=== PATIENT | male | born 1950 | race Caucasian/White ===

== ENCOUNTER → 2017-08-06 | Outpatient (CLI) | payer OTHER ==
[~2017-08-06] MED LIST: ASPI81TA45 PO; BUME1TAB PO; CARV3.12 PO; CLOP75TA PO; FURO40TA PO; LISI10TA3 PO; MAGN250T11 PO; MUCI60TA5 PO; MULT-65 PO; OMEP20TA39 PO; PERC5TAB12 PO; POTA10IN2 PO; RANI150T PO; SACU1TAB PO; TAB-TAB PO; TEMA30CA PO; VITA2000 PO
[2017-08-06 13:18] LABS: AUTOMATED NEUTROPHIL # 4.8 TH/MM3 (1.8-7.7); BASOPHIL # 0.1 TH/MM3 (0-0.2); BASOPHIL % 0.8 % (0.0-2.0); EOSINOPHIL # 0.2 TH/MM3 (0-0.4); EOSINOPHIL % 2.2 % (0.0-4.0); HEMATOCRIT 45.4 % (39.0-51.0); HEMOGLOBIN 15.2 GM/DL (13.0-17.0); LYMPH % 15.1 % (9.0-44.0); LYMPHOCYTE # 1.1 TH/MM3 (1.0-4.8); MEAN CELL VOLUME 91.8 FL (80.0-100.0); MEAN CORPUSCULAR HEMOGLOBIN 30.7 PG (27.0-34.0); MEAN CORPUSCULAR HGB CONC 33.4 % (32.0-36.0); MEAN PLATELET VOLUME 8.4 FL (7.0-11.0); MONO % 13.1 % (0.0-8.0); MONOCYTE # 0.9 TH/MM3 (0-0.9); NEUT % 68.8 % (16.0-70.0); PLATELET COUNT 257 TH/MM3 (150-450); RED BLOOD COUNT 4.95 MIL/MM3 (4.50-5.90); RED CELL DISTRIBUTION WIDTH 13.2 % (11.6-17.2)
[2017-08-06 13:19] LABS: BILIRUBIN, URINE NEG (NEG); BLOOD, URINE NEG (NEG); GLUCOSE,URINE NEG (NEG); KETONE, URINE NEG (NEG); MUCUS URINE FEW /lpf (OCC); NITRITE,URINE NEG (NEG); URINE COLOR YELLOW (YELLW/STRAW); URINE LEUKOCYTE ESTERASE NEG (NEG)
[2017-08-06 13:27] LABS: PROTHROMBIN TIME - PATIENT 10.7 SEC (9.8-11.6)
--- NOTE | 2017-08-06 13:29 | RADRPT ---
EXAM DATE/TIME: 08/06/2017 13:10 [place] COMPARISON: No previous studies available for comparison. INDICATIONS : Evaluate for pneumonia, pneumothorax, or comminicable disease. Pre op for carotid endarterectomy on 2016. MEDICAL HISTORY : Chronic obstructive pulmonary disease. Congestive heart failure. Afib. SURGICAL HISTORY : Pacemaker. Defibrillator. ENCOUNTER: Initial ACUITY: 1 day PAIN SCORE: 0/10 LOCATION: Bilateral chest FINDINGS: PA and lateral views of the chest demonstrate the lungs to be symmetrically aerated without evidence of mass, infiltrate or effusion. 3-lead pacer is evident. The cardiomediastinal contours are unrema rkable. Osseous structures are intact. CONCLUSION: Negative for an acute process. Sean Lewis MD FACR on August 06, 2017 at 13:27 Board Certified Radiologist. This report was verified electronically.
[2017-08-06 13:41] LABS: BICARBONATE 26.1 MEQ/L (21.0-32.0); CREATININE 1.2 MG/DL (0.60-1.30)
--- NOTE | 2017-08-07 20:14 | EKG ---
Date Performed: 08/06/2017 Time Performed: 12:38:56 PTAGE: 67 years EKG: ELECTRONIC ATRIAL PACEMAKER ELECTRONIC VENTRICULAR PACEMAKER WHEN COMPARED TO PRIOR EKG PAT IENT IS NOW PACED. ABNORMAL RHYTHM ECG PREVIOUS TRACING : 04/07/2016 06.29 DOCTOR: Madina Castano Interpretating Date/Time 08/07/2017 20:12:54
== END ==
LOC: CPRE 11:59
PROVIDERS: ATTEND Surgery
DX: Z01.810 Encounter for preprocedural cardiovascular examination (principal); Z01.811 Encounter for preprocedural respiratory examination; Z01.812 Encounter for preprocedural laboratory examination; I65.22 Occlusion and stenosis of left carotid artery; R94.31 Abnormal electrocardiogram [ECG] [EKG]
CPT/HCPCS: 36415; 71020; 80048; 81001; 85025; 85610; 85730; 93005

== ENCOUNTER 2017-08-08 05:42 | Inpatient (IN) | payer OTHER, MEDICARE ==
[~2017-08-08] VITALS: Ht 180.3 cm; Wt 76.0 kg
[~2017-08-08 05:42] MED LIST changes: -ASPI81TA45 PO; -CARV3.12 PO; -FURO40TA PO; -OMEP20TA39 PO; -PERC5TAB12 PO; -POTA10IN2 PO; -SACU1TAB PO; -TAB-TAB PO
[2017-08-08] MEDS ORDERED: CHLORHEXIDINE GLUCONATE 2 % 1 PACK (2 CLOTHS) TOPICAL PRN (06:15)
[2017-08-08] MEDS ORDERED: POVIDONE IODINE 5% (ANTISEPSIS KIT) 4 APPLICATIONS EACH NARE PRN (06:15)
[2017-08-08] MEDS ORDERED: INSULIN HUMAN REGULAR 1,000 UNITS/10 ML VIAL SQ PRN (06:15)
[2017-08-08] MEDS ORDERED: LACTATED RINGER'S 1000 ML IV PRN (06:15)
[2017-08-08] MEDS ORDERED: SODIUM CHLORID 0.9% 500 ML IV PRN (06:15)
[2017-08-08] MEDS ORDERED: METOPROLOL TARTRATE 25 MG TAB PO PRN (06:15)
--- NOTE | 2017-08-08 07:09 | PD.VS.PN ---
Pre-operative Note Pre-operative diagnosis: Asymptomatic high grade LEFT carotid stenosis Planned procedure: L CEA Interval History: Pt has been feeling well and no cerebrovascular events. Labs: Hct 45 plt 257 creatinine 1.2 INR 1.0 Blood: T&S Imaging: duplex and CT reviewed Orders: NPO Ancef 2g IV OCTOR Post-operative destination: CVICU Operative site marked: Yes Consent: Informed consent has been obtained from Oli Gregorio. I have explained the procedure in detail and discussed the risks, benefits, and potential complications. All questions have been answered. Patient contact information: [phone] Zac Sawyer MD Aug 08, 2017 07:09
--- NOTE | 2017-08-08 07:09 | PD.VS.PN ---
Pre-operative Note Pre-operative diagnosis: Asymptomatic high grade LEFT carotid stenosis Planned procedure: L CEA Interval History: Pt has been feeling well and no cerebrovascular events. Labs: Hct 45 plt 257 creatinine 1.2 INR 1.0 Blood: T&S Imaging: duplex and CT reviewed Orders: NPO Ancef 2g IV OCTOR Post-operative destination: CVICU Operative site marked: Yes Consent: Informed consent has been obtained from Oli Gregorio. I have explained the procedure in detail and discussed the risks, benefits, and potential complications. All questions have been answered. Patient contact information: [phone] Zac Sawyer MD Aug 08, 2017 07:09
--- NOTE | 2017-08-08 07:09 | PD.VS.PN ---
Pre-operative Note Pre-operative diagnosis: Asymptomatic high grade LEFT carotid stenosis Planned procedure: L CEA Interval History: Pt has been feeling well and no cerebrovascular events. Labs: Hct 45 plt 257 creatinine 1.2 INR 1.0 Blood: T&S Imaging: duplex and CT reviewed Orders: NPO Ancef 2g IV OCTOR Post-operative destination: CVICU Operative site marked: Yes Consent: Informed consent has been obtained from Oli Gregorio. I have explained the procedure in detail and discussed the risks, benefits, and potential complications. All questions have been answered. Patient contact information: [phone] Zac Sawyer MD Aug 08, 2017 07:09
[2017-08-08] MEDS ORDERED: ceFAZolin 2 GM PREMIX 50 ML ONE (07:22)
[2017-08-08] MEDS ORDERED: PROTAMINE SULFATE 50 MG/5 ML VIAL ONE (07:22)
[2017-08-08] MEDS ORDERED: HEPARIN-NS/PF INJ 500 ML ONE (07:22)
[2017-08-08] MEDS ORDERED: HEPARIN SODIUM - IV 10,000 UNITS/10 ML VIAL ONE (07:22)
[2017-08-08] MEDS ORDERED: BUPIVACAINE HCL PF 0.5% 30 ML VIAL ONE (07:22)
[2017-08-08] MEDS ORDERED: THROMBIN (TOPICAL) 20,000 UNIT SPRAY KIT ONE (07:22)
[2017-08-08] MEDS ORDERED: DEXMEDETOMIDINE HCL 200 MCG/2 ML VIAL ONE (07:49)
[2017-08-08] MEDS ORDERED: SUGAMMADEX SODIUM 200 MG/2 ML VIAL IV PUSH ONE (07:49)
[2017-08-08] MEDS ORDERED: FAMOTIDINE 20 MG/2 ML VIAL ONE (07:50)
[2017-08-08] MEDS ORDERED: BUMETANIDE 1 MG TAB PO PRN (08:00)
[2017-08-08] MEDS ORDERED: TEMAZEPAM 15 MG CAP PO PRN (08:00)
[2017-08-08] MEDS ORDERED: HYDROmorphone HCL 2 MG TAB PO PRN (08:00)
[2017-08-08] MEDS ORDERED: NITROGLYCERIN-D5W 50 MG/250 ML 0 ML ONE (08:11)
[2017-08-08] MEDS ORDERED: MORPHINE SULFATE 2 MG/ML INJ IV PUSH PRN (09:00)
[2017-08-08] MEDS: FAMOTIDINE 20 MG TAB PO SCH ×2 (09:00→21:00)
[2017-08-08] MEDS: CLOPIDOGREL 75 MG TAB PO SCH (09:00)
[2017-08-08] MEDS: CHOLECALCIFEROL (VIT D3) 1000 UNIT TAB PO SCH (09:00)
[2017-08-08] MEDS ORDERED: LACTATED RINGER'S 1000 ML INJ 1,000 ML IV SCH (09:00)
[2017-08-08] MEDS: ATORVASTATIN 40 MG TAB PO SCH (09:00)
[2017-08-08] MEDS ORDERED: PSEUDOEPHEDRINE GUAIFENESIN PO SCH (09:00)
[2017-08-08] MEDS ORDERED: NON-FORMULARY DRUG (Ranitidine 150 MG) PO SCH (09:00)
[2017-08-08] MEDS: LISINOPRIL 10 MG TAB PO SCH (09:00)
[2017-08-08] MEDS ORDERED: MAGNESIUM OXIDE 250 MG PO SCH (09:15)
[2017-08-08] MEDS: MULTIVITAMIN TAB PO SCH (09:15)
--- NOTE | 2017-08-08 10:34 | HHI.PR ---
Immediate Post Op Note Procedure Date: Aug 08, 2017 Pre Op Diagnosis: asymptomatic high grade carotid stenosis Post Op Diagnosis: asymptomatic high grade carotid stenosis Surgeon: Zac Sawyer [employer] Technical Assistant(s): Chris Byers MD Procedure: L CEA Findings: near occlusive plaque at carotid bifurcation Additional Information: good Doppler signals after CEA Complications: none apparent, awoke neurologically intact Specimen(s) removed: plaque, not for pathology Estimated blood loss: 100mL Anesthesia: General Drains: None Fluids: 1800mL IVF Patient to: CVICU Patient Condition: Good Implant/Devices: SEE IMPLANT LOG (if applicable) Date/Time of Procedure: SEE SURGICAL CARE RECORD Zac Sawyer MD Aug 08, 2017 10:34
[2017-08-08 11:00] VITALS: BP_SYST 133; BP_SYST 134; BP_DIAS 61; BP_DIAS 77; PULSE 65; RESP 18; TEMP 98.2; O2SAT 92
--- NOTE | 2017-08-08 11:16 | MP ---
cc: ELIAS SAWYER MD DATE OF SURGERY: 08/08/2017 PREOPERATIVE DIAGNOSIS Asymptomatic high-grade left carotid stenosis. POSTOPERATIVE DIAGNOSIS Asymptomatic high-grade left carotid stenosis. PROCEDURE Left carotid endarterectomy. ATTENDING SURGEON lEias Sawyer MD [employer] ARCHITECT SURGEON Chris Echeverria, Saleem Byers MD INDICATIONS Mr. Norman is a 67-year-old gentleman with a greater than 80% left carotid stenosis. He is asymptomatic. After a thorough discussion was had with the patient, risks and benefits, he was offered carotid endarterectomy. DESCRIPTION OF PROCEDURE Informed consent was obtained from the patient. The patient was taken to the operating room and placed supine on the operating table. Appropriate time-out was taken to ensure the patient's identity, the operative site and planned procedure. The administration of 2 grams of Kefzol was initiated prior to skin incision and will be discontinued after single preoperative dose. Everyone in the room agreed with time-out and we proceeded. The left neck was prepped and draped and an incision was made along the anterior border of the sternocleidomastoid and carried down to subcutaneous tissue with electrocautery. The jugular vein was retracted anteriorly thereby exposing the somewhat posteriorly located carotid artery. The internal carotid artery, external carotid artery and superior thyroid arteries were dissected free as was the common carotid artery. All these encircled with vessel loops. The patient was systemically heparinized with 10,000 units of intravenous heparin, distal then proximal control of the internal carotid, common carotid arteries were obtained and a longitudinal arteriotomy was made with 11 blade and extended with [place]ascade scissors. There was a high-grade calcific stenosis right of the bifurcation and this plaque was endarterectomized without difficulty. Tacking sutures were used to tack down the distal end point with 6-0 Prolene suture. The bovine pericardial patch was brought up onto the field and sewn on with running 5-0 Prolene suture and at the end it was flushed and the clamps released. Repair sutures made with 6-0 pledgeted Prolene sutures. There were nice Doppler signals in the ICA and ECA. The wound was made hemostatic and then infiltrated with Marcaine and closed with 2-0 Polysorb, 3-0 Polysorb and 4-0 Monocryl. The sponge, needle counts were correct at the end of the case. Throughout the entire case there were no EEG changes and the patient was neurologically intact when he was extubated and taken to the ICU in stable condition. MD MICHAEL Dodge/RANDY /10:56 AM /11:03 AM [email or web address]
--- NOTE | 2017-08-08 11:16 | MP ---
cc: ELIAS SAWYER MD DATE OF SURGERY: 08/08/2017 PREOPERATIVE DIAGNOSIS Asymptomatic high-grade left carotid stenosis. POSTOPERATIVE DIAGNOSIS Asymptomatic high-grade left carotid stenosis. PROCEDURE Left carotid endarterectomy. ATTENDING SURGEON Elias Sawyer MD PROGRAM PROJECT MANAGER SURGEON Chris Echeverria, Saleem Byers MD INDICATIONS Mr. Norman is a 67-year-old gentleman with a greater than 80% left carotid stenosis. He is asymptomatic. After a thorough discussion was had with the patient, risks and benefits, he was offered carotid endarterectomy. DESCRIPTION OF PROCEDURE Informed consent was obtained from the patient. The patient was taken to the operating room and placed supine on the operating table. Appropriate time-out was taken to ensure the patient's identity, the operative site and planned procedure. The administration of 2 grams of Kefzol was initiated prior to skin incision and will be discontinued after single preoperative dose. Everyone in the room agreed with time-out and we proceeded. The left neck was prepped and draped and an incision was made along the anterior border of the sternocleidomastoid and carried down to subcutaneous tissue with electrocautery. The jugular vein was retracted anteriorly thereby exposing the somewhat posteriorly located carotid artery. The internal carotid artery, external carotid artery and superior thyroid arteries were dissected free as was the common carotid artery. All these encircled with vessel loops. The patient was systemically heparinized with 10,000 units of intravenous heparin, distal then proximal control of the internal carotid, common carotid arteries were obtained and a longitudinal arteriotomy was made with 11 blade and extended with [place] scissors. There was a high-grade calcific stenosis right of the bifurcation and this plaque was endarterectomized without difficulty. Tacking sutures were used to tack down the distal end point with 6-0 Prolene suture. The bovine pericardial patch was brought up onto the field and sewn on with running 5-0 Prolene suture and at the end it was flushed and the clamps released. Repair sutures made with 6-0 pledgeted Prolene sutures. There were nice Doppler signals in the ICA and ECA. The wound was made hemostatic and then infiltrated with Marcaine and closed with 2-0 Polysorb, 3-0 Polysorb and 4-0 Monocryl. The sponge, needle counts were correct at the end of the case. Throughout the entire case there were no EEG changes and the patient was neurologically intact when he was extubated and taken to the ICU in stable condition. MD MICHAEL Dodge/RANDY /10:56 AM /11:03 AM [email or web address]
[2017-08-08 15:00] VITALS: BP_SYST 101; BP_SYST 113; BP_DIAS 52; BP_DIAS 62; PULSE 59; RESP 18; TEMP 98.6; O2SAT 95
[2017-08-08 16:00] VITALS: O2SAT 94
--- NOTE | 2017-08-08 16:00 | PD.CONS ---
[facility] Service Critical Care Medicine Consult Requested By Dr. Sawyer Reason for Consult perioperative management of comorbid conditions Primary Care Physician Non-Staff History of Present Illness This is a 67-year-old male with a history of hypertension, systolic heart failure with a reported EF of around 25%, peripheral vascular disease, COPD and high-grade carotid stenosis who presents for elective left open carotid endarterectomy. Intraoperative events were uncomplicated. He arrives to the CVICU extubated, arousing from anesthesia. He denies pain. He is somewhat somnolent from anesthesia and so complete review of systems is unobtainable. He is moving all his extremities. Review of Systems ROS Limitations: Clinical Condition, Altered Mental Status ROS Arousing from anesthesia Past Family Social History Allergies: Coded Allergies: No Known Allergies (Unverified Allergy, Unknown, 08/08/17) Past Medical History Hypertension Systolic heart failure with reported EF of around 25% Peripheral vascular disease Status post AICD placement Low back pain GERD Benign prostatic hyperplasia Glaucoma COPD Osteoarthritis Past Surgical History Tonsillectomy Coronary artery stents Before meals placement Hemorrhoidectomy Reported Medications Bumetanide 1 Mg Tab 1 Mg PO DAILY PRN Temazepam 30 Mg Cap 30 Mg PO HS PRN Multi-Vitamin Daily (Multiple Vitamin) 1 Tab Tab 1 Tab PO DAILY Vitamin D3 (Cholecalciferol) 2,000 Unit Cap 2,000 Units PO DAILY Magnesium Oxide 250 Mg Tab 250 Mg PO DAILY Mucinex D (Pseudoephedrine-Guaifenesin) 60-600 Mg Tab 1 Tab PO BID Clopidogrel (Clopidogrel Bisulfate) 75 Mg Tab 75 Mg PO DAILY Lisinopril 10 Mg Tab 10 Mg PO DAILY Ranitidine (Ranitidine HCl) 150 Mg Tab 150 Mg PO BID Active Ordered Medications See MAR Family History Reviewed in the chart and found be noncontributory to this acute illness Social History Drinks 4+ drink per week Physical Exam Vital Signs Vital Signs Date Time Temp Pulse Resp B/P (MAP) Pulse Ox O2 Delivery O2 Flow Rate FiO2 08/08/17 15:00 59 08/08/17 15:00 98.6 59 18 101/62 (75) 95 113/52 (72) 08/08/17 15:00 95 Nasal Cannula 2.00 08/08/17 11:00 98.2 65 18 133/77 (95) 92 134/61 (85) 08/08/17 11:00 65 08/08/17 11:00 94 Nasal Cannula 4.00 08/08/17 06:53 97.0 60 20 139/81 (100) 96 Physical Exam GENERAL: Middle-aged male, lying in bed, arousing from anesthesia HEENT: Normocephalic. Atraumatic. Pupils equal, round, reactive, conjugate. Mucous membranes are moist NECK: Trachea is midline. There is no JVD. Incision over her anterior left neck is clean and dry without evidence of hematoma CHEST: Unlabored. Equal chest rise. Nasal cannula oxygen. CARDIOVASCULAR: Normal rate, regular rhythm. Systolic blood pressure is 141 on my evaluation ABDOMEN: Soft, nontender, nondistended. No guarding. MUSCULOSKELETAL: Pulses 2+. No peripheral edema. NEUROLOGICAL: RASS -2. Arousing from anesthesia. Follows commands in all 4 extremities. Musculoskeletal strength 5 out of 5 in all extremities. Sensation grossly intact. Assessment and Plan Assessment and Plan Assessment: 67-year-old male postop day 0 status post left carotid endarterectomy. Admit to ICU. Close neuro monitoring. goal SBP 120 - 160. Carotid stenosis s/p left CEA - pain management per surgeon - goal SBP 120 - 160 - frequent neuro checks - keep art line Systolic Heart Failure - minimize excess ivf - restart bumex tomorrow Hypertension - restart home meds tomorrow Hyperlipidemia - restart statin. COPD - pulmonary toilet - nebs prn - wean o2 by nc for goal spo2 > 90% d/c mai after midnight d/c art line early AM advance diet to heart healthy for breakfast. Remain in ICU tonight. Critical care medicine will continue to follow along while patient remains in ICU. Discussed Condition With Jeremiah Prado MD Aug 08, 2017 16:00
[2017-08-08 20:00] VITALS: BP_SYST 108; BP_SYST 113; BP_DIAS 61; BP_DIAS 69; PULSE 60; PULSE 65; RESP 18; TEMP 98.1; O2SAT 95
[2017-08-08 23:00] VITALS: BP_SYST 108; BP_SYST 115; BP_DIAS 57; BP_DIAS 63; PULSE 60; RESP 18; TEMP 98.1; O2SAT 95
[2017-08-09 03:00] VITALS: BP_SYST 114; BP_SYST 142; BP_DIAS 65; BP_DIAS 67; PULSE 61; PULSE 62; RESP 18; TEMP 98.3; O2SAT 93
[2017-08-09 03:46] LABS: HEMATOCRIT 38.2 % (39.0-51.0); HEMOGLOBIN 12.8 GM/DL (13.0-17.0); MEAN CELL VOLUME 91.9 FL (80.0-100.0); MEAN CORPUSCULAR HEMOGLOBIN 30.7 PG (27.0-34.0); MEAN CORPUSCULAR HGB CONC 33.4 % (32.0-36.0); MEAN PLATELET VOLUME 8.4 FL (7.0-11.0); PLATELET COUNT 205 TH/MM3 (150-450); RED BLOOD COUNT 4.15 MIL/MM3 (4.50-5.90); RED CELL DISTRIBUTION WIDTH 13.4 % (11.6-17.2); WHITE BLOOD COUNT 12.1 TH/MM3 (4.0-11.0)
[2017-08-09 04:15] LABS: BICARBONATE 23.9 MEQ/L (21.0-32.0); CALCIUM 8.2 MG/DL (8.5-10.1); CREATININE 0.69 MG/DL (0.60-1.30)
[2017-08-09 07:00] VITALS: BP 119/72; PULSE 65; PULSE 74; RESP 18; TEMP 98.5; O2SAT 90
[2017-08-09] MEDS ORDERED: BUMETANIDE INJ 1 MG/4 ML VIAL IV PUSH ONE (07:15)
--- NOTE | 2017-08-09 07:20 | HHI.CCPN ---
Subjective Remarks/Hospital Course Hospital Course: This is a 67-year-old male with a history of hypertension, systolic heart failure with a reported EF of around 25%, peripheral vascular disease, COPD and high-grade carotid stenosis who presents for elective left open carotid endarterectomy. Intraoperative events were uncomplicated. He arrives to the CVICU extubated, arousing from anesthesia. He denies pain. He is somewhat somnolent from anesthesia and so complete review of systems is unobtainable. He is moving all his extremities. Subjective: 08/09: doing well. denies pain. wants to go home. Objective Vital Signs Date Time Temp Pulse Resp B/P (MAP) Pulse Ox O2 Delivery O2 Flow Rate FiO2 08/09/17 03:00 98.3 61 18 114/65 (81) 93 142/67 (92) 08/09/17 03:00 Nasal Cannula 3.00 Result Diagram: 08/09/17 0300 08/09/17 0300 Objective Remarks GENERAL: Middle-aged male, lying in bed, no acute distress. HEENT: Normocephalic. Atraumatic. Pupils equal, round, reactive, conjugate. Mucous membranes are moist NECK: Trachea is midline. There is no JVD. Incision over her anterior left neck is clean and dry without evidence of hematoma CHEST: Unlabored. Equal chest rise. Nasal cannula oxygen. CARDIOVASCULAR: Normal rate, regular rhythm. ABDOMEN: Soft, nontender, nondistended. No guarding. MUSCULOSKELETAL: Pulses 2+. No peripheral edema. NEUROLOGICAL: RASS 0. CAM-. follows commands. A/P Assessment and Plan Assessment: 67-year-old male postop day 1 status post left carotid endarterectomy. Clinically on pathway. slight hypoxemia likely secondary to early volume overload given systolic heart failure. will pursue early forced diuresis. If this resolves, could still be safe to discharge home today. Carotid stenosis s/p left CEA - pain management per surgeon - goal normotension. - d/c art line. Systolic Heart Failure - d/c ivf - bumex 1mg iv x 1 today. Hypertension - restart home meds Hyperlipidemia - home statin. COPD - pulmonary toilet - nebs prn - wean o2 by nc for goal spo2 > 90% heart healthy diet scd's d/c art linesergei. Can leave ICU. Could be ready for discharge late morning/early afternoon if mild hypoxemia resolves with restarting diuresis and aggressive pulmonary toilet. Critical care medicine will continue to follow along while patient remains in ICU. Jeremiah Ferro MD Aug 09, 2017 07:20
[2017-08-09] MEDS ORDERED: PERC5TAB12 PO (08:13)
--- NOTE | 2017-08-09 08:14 | PD.VS.PN ---
Subjective POD #: 1 Procedure(s): L CEA Subjective/Hospital Course OOB TC and eating this morning Neuro intact Slight occipital headache last night but went away Objective Vitals/I&O Date Time Temp Pulse Resp B/P (MAP) Pulse Ox O2 Delivery O2 Flow Rate FiO2 08/09/17 03:00 98.3 61 18 114/65 (81) 93 142/67 (92) 08/09/17 03:00 62 08/09/17 03:00 95 Nasal Cannula 3.00 08/08/17 23:00 60 08/08/17 23:00 95 Nasal Cannula 3.00 08/08/17 23:00 98.1 60 18 108/63 (78) 95 115/57 (76) 08/08/17 20:00 95 Nasal Cannula 2.00 08/08/17 20:00 98.1 65 18 108/69 (82) 95 113/61 (78) 08/08/17 20:00 60 08/08/17 16:00 94 Nasal Cannula 2.00 08/08/17 15:00 59 08/08/17 15:00 98.6 59 18 101/62 (75) 95 113/52 (72) 08/08/17 15:00 95 Nasal Cannula 2.00 08/08/17 11:00 98.2 65 18 133/77 (95) 92 134/61 (85) 08/08/17 11:00 65 08/08/17 11:00 94 Nasal Cannula 4.00 08/09/17 08/09/17 08/09/17 07:00 15:00 23:00 Intake Total 1040 ml Output Total 1480 ml Balance -440 ml Exam: Neuro intact CN intact L neck incision ok Laboratory Laboratory Tests Test 08/09/17 03:00 White Blood Count 12.1 Red Blood Count 4.15 Hemoglobin 12.8 Hematocrit 38.2 Mean Corpuscular Volume 91.9 Mean Corpuscular Hemoglobin 30.7 Mean Corpuscular Hemoglobin Concent 33.4 Red Cell Distribution Width 13.4 Platelet Count 205 Mean Platelet Volume 8.4 Blood Urea Nitrogen 11 Creatinine 0.69 Random Glucose 128 Calcium Level 8.2 Sodium Level 138 Potassium Level 4.3 Chloride Level 105 Carbon Dioxide Level 23.9 Anion Gap 9 Estimat Glomerular Filtration Rate 115 Assessment and Plan Plan POD#1 s/p L CEA D/C today Discharge Planning today RTC 1m with carotid duplex - already arranged. Zac Sawyer MD Aug 09, 2017 08:14
[2017-08-09] MEDS: CLOPIDOGREL 75 MG TAB PO SCH (08:47)
[2017-08-09] MEDS: ATORVASTATIN 40 MG TAB PO SCH (08:47)
[2017-08-09] MEDS: LISINOPRIL 10 MG TAB PO SCH (08:47)
[2017-08-09] MEDS: CHOLECALCIFEROL (VIT D3) 1000 UNIT TAB PO SCH (08:47)
[2017-08-09] MEDS: MULTIVITAMIN TAB PO SCH (08:47)
[2017-08-09] MEDS: FAMOTIDINE 20 MG TAB PO SCH (08:48)
[2017-08-09] MEDS ORDERED: ENOXAPARIN SODIUM 30 MG/0.3 ML SYRINGE SQ SCH (09:00)
[2017-08-09 09:03] VITALS: O2SAT 92
--- NOTE | 2017-08-09 09:23 | PD.VS.DC ---
Discharge Summary Admission Date: Aug 08, 2017 at 05:42 Discharge Date: Aug 09, 2017 Admission Diagnosis: (1) Left-sided carotid artery disease Discharge Diagnosis: (1) Status post carotid endarterectomy ICD Codes: Z98.890 - Other specified postprocedural states (2) Left-sided carotid artery disease ICD Codes: I77.9 - Disorder of arteries and arterioles, unspecified Brief History from admission 67/M who presents w/ high grade LEFT carotid stenosis Asymptomatic w/o c/o neurological deficits Procedure(s): L CEA Significant Findings GENERAL: A&OX3,GCS15,NAD SKIN: Warm and dry. Incision to Left side of neck intact w/ surgical glue, mild ecchymosis near the incision line and periwound. No swelling or drainage NECK: Supple, trachea midline. No JVD or lymphadenopathy. CARDIOVASCULAR: Regular rate and rhythm without murmurs, gallops, or rubs. RESPIRATORY: Breath sounds equal bilaterally with mild expiratory wheezes BLB/ RUL. No accessory muscle use. Pt denies SOB/CP Laboratory Tests Test 08/09/17 03:00 White Blood Count 12.1 TH/MM3 (4.0-11.0) Red Blood Count 4.15 MIL/MM3 (4.50-5.90) Hemoglobin 12.8 GM/DL (13.0-17.0) Hematocrit 38.2 % (39.0-51.0) Random Glucose 128 MG/DL (74-106) Calcium Level 8.2 MG/DL (8.5-10.1) Hospital Course: 67/M who presents w/ high grade LEFT carotid stenosis Asymptomatic w/o c/o neurological deficits Pt S/P L CEA POD 1 Pt w/o c/o Headache/CP/SOB Pt w/o neurological deficits CN2-12 intact Pt to be d/c today OP F/U arranged w/ a surveillance carotid duplex Allergies Coded Allergies Type Severity Reaction Last Updated Verified No Known Allergies Allergy Unknown 08/08/17 No 08/07/17 08/07/17 08/08/17 08/08/17 08/09/17 08/09/17 06:00 18:00 06:00 18:00 06:00 18:00 Intake Total 2644 ml 1040 ml Output Total 750 ml 1480 ml Balance 1894 ml -440 ml Intake Oral 640 ml 480 ml IV Total 204 ml 560 ml Other 1800 ml Output Urine Total 650 ml 1480 ml Estimated Blood Loss 100 ml # Voids 2 4 # Bowel Movements 0 0 Laboratory Tests Test 08/09/17 03:00 White Blood Count 12.1 TH/MM3 Red Blood Count 4.15 MIL/MM3 Hemoglobin 12.8 GM/DL Hematocrit 38.2 % Mean Corpuscular Volume 91.9 FL Mean Corpuscular Hemoglobin 30.7 PG Mean Corpuscular Hemoglobin Concent 33.4 % Red Cell Distribution Width 13.4 % Platelet Count 205 TH/MM3 Mean Platelet Volume 8.4 FL Blood Urea Nitrogen 11 MG/DL Creatinine 0.69 MG/DL Random Glucose 128 MG/DL Calcium Level 8.2 MG/DL Sodium Level 138 MEQ/L Potassium Level 4.3 MEQ/L Chloride Level 105 MEQ/L Carbon Dioxide Level 23.9 MEQ/L Anion Gap 9 MEQ/L Estimat Glomerular Filtration Rate 115 ML/MIN Orders Procedure Category Date Status Time Lactated Ringer's MED 08/08/17 In Process 1000 Ml Inj (Lr 1000 M 06:15 Sodium Chlorid 0.9% MED 08/08/17 In Process 500 Ml Inj (Ns 500 M 06:15 Povidone Iod 5% MED 08/08/17 In Process Antisepsis Kit 06:15 Chlorhexidine 2% MED 08/08/17 In Process Cloth (Chlorhexidine 06:15 Insulin Human Regular MED 08/08/17 In Process Inj (Novolin R Inj 06:15 Metoprolol Tartrate MED 08/08/17 In Process (Lopressor) 06:15 Type And Screen BBK 08/08/17 Complete 06:24 Protamine Sulfate Inj MED 08/08/17 Complete (Protamine Sulfate 07:22 Heparin Inj (Heparin MED 08/08/17 Complete Inj) 07:22 Bupivacaine Pf 0.5% MED 08/08/17 Complete Inj (Marcaine Pf 0.5 07:22 Thrombin Top [place] MED 08/08/17 Complete (Thrombin Top [place]) 07:22 Heparin-Ns/Pf Inj MED 08/08/17 Complete (Heparin-Ns/Pf Inj) 07:22 Cefazolin 2 Gm Premix MED 08/08/17 Complete (Ancef 2 Gm Premix 07:22 Sugammadex Inj MED 08/08/17 Complete (Bridion Inj) 07:49 Dexmedetomidine Inj MED 08/08/17 Complete (Precedex Inj) 07:49 Famotidine Inj MED 08/08/17 Complete (Pepcid Inj) 07:50 Admit To Inpatient ADMITTING 08/08/17 Transmitted Code Status CODE 08/08/17 Transmitted 07:47 Vital Signs (Adult) [facility] 08/08/17 In Process 07:47 Deployment Technician / [facility] 08/08/17 In Process Telemetry 07:47 Activity Oob Ad Christina [facility] 08/08/17 In Process 17:00 Activity Bed Rest [facility] 08/08/17 In Process 07:[address] 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 Worker CONS 08/08/17 Transmitted Lactated Ringer's MED 08/08/17 Complete 1000 Ml Inj (Lr 1000 M 09:00 Famotidine (Pepcid) MED 08/08/17 In Process 09:00 Oxycodone (Roxicodone) MED 08/08/17 In Process 08:00 Hydromorphone MED 08/08/17 In Process (Dilaudid) 08:00 Inpatient ADMITTING 08/08/17 Transmitted Certification Bumetanide MED 08/08/17 In Process (Bumetanide) 08:00 Cholecalciferol MED 08/08/17 In Process (Vitamin D3) 09:00 Clopidogrel (Plavix) MED 08/08/17 In Process 09:00 Lisinopril (Prinivil) MED 08/08/17 In Process 09:00 Temazepam (Restoril) MED 08/08/17 In Process 08:00 Patient Own Medication MED 08/08/17 In Process 09:15 Multivitamin MED 08/08/17 Logged (Theragran) 09:15 Atorvastatin (Lipitor) MED 08/08/17 In Process 09:00 (Hub Use Only)Inp Phy CONS 08/08/17 Transmitted Cons/Ref Nitroglycerin-D5w 50 MED 08/08/17 Complete Mg/250 Ml (Nitrogly 08:11 Morphine Inj MED 08/08/17 In Process (Morphine Inj) 09:00 ^ Other Nursing Orders [facility] 08/08/17 In Process 10:34 Am Admit Pre Op Care [facility] 08/08/17 Complete Enoxaparin Inj MED 08/09/17 In Process (Lovenox Inj) 09:00 ^ Other Nursing Orders [facility] 08/08/17 In Process 14:09 Resp Ezpap/Pep Therapy RSP 08/09/17 Logged 07:13 RESP RSP 08/09/17 Logged Acapella/Pep/Chest 07:13 Resp Incentive RSP 08/09/17 Logged Spirometry 07:13 Bumetanide Inj (Bumex MED 08/09/17 Complete Inj) 07:15 ^ Discontinue [facility] 08/09/17 In Process Arterial Line 07:16 Patient Transfer ADMITTING 08/09/17 Transmitted Attending Discharge DISCHARGE 08/09/17 Transmitted Order Vital Signs Date Time Temp Pulse Resp B/P (MAP) Pulse Ox O2 Delivery O2 Flow Rate FiO2 08/09/17 09:03 92 Nasal Cannula 2.00 08/09/17 07:00 74 08/09/17 07:00 90 Nasal Cannula 2.00 08/09/17 07:00 98.5 65 18 119/72 (88) 90 Arterial Line 08/09/17 03:00 98.3 61 18 114/65 (81) 93 142/67 (92) 08/09/17 03:00 62 08/09/17 03:00 95 Nasal Cannula 3.00 08/08/17 23:00 60 08/08/17 23:00 95 Nasal Cannula 3.00 08/08/17 23:00 98.1 60 18 108/63 (78) 95 115/57 (76) 08/08/17 20:00 95 Nasal Cannula 2.00 08/08/17 20:00 98.1 65 18 108/69 (82) 95 113/61 (78) 08/08/17 20:00 60 08/08/17 16:00 94 Nasal Cannula 2.00 08/08/17 15:00 59 08/08/17 15:00 98.6 59 18 101/62 (75) 95 113/52 (72) 08/08/17 15:00 95 Nasal Cannula 2.00 08/08/17 11:00 98.2 65 18 133/77 (95) 92 134/61 (85) 08/08/17 11:00 65 08/08/17 11:00 94 Nasal Cannula 4.00 08/08/17 06:53 97.0 60 20 139/81 (100) 96 Discharge Condition: Good Discharge Disposition: Discharge Home Discharge Instructions: May shower No tub baths or swimming until incision is fully healed Do not apply creams or ointments to incision site as it may loosen the surgical glue No driving for 1W No driving while taking narcotic pain medication F/U in 1M with a surveillance carotid duplex Any questions or concerns: Call [facility] Vascular Surgery at [facility] [phone] Thelma Sharma Aug 09, 2017 09:23
--- NOTE | 2017-08-09 09:23 | PD.VS.DC ---
Discharge Summary Admission Date: Aug 08, 2017 at 05:42 Discharge Date: Aug 09, 2017 Admission Diagnosis: (1) Left-sided carotid artery disease Discharge Diagnosis: (1) Status post carotid endarterectomy ICD Codes: Z98.890 - Other specified postprocedural states (2) Left-sided carotid artery disease ICD Codes: I77.9 - Disorder of arteries and arterioles, unspecified Brief History from admission 67/M who presents w/ high grade LEFT carotid stenosis Asymptomatic w/o c/o neurological deficits Procedure(s): L CEA Significant Findings GENERAL: A&OX3,GCS15,NAD SKIN: Warm and dry. Incision to Left side of neck intact w/ surgical glue, mild ecchymosis near the incision line and periwound. No swelling or drainage NECK: Supple, trachea midline. No JVD or lymphadenopathy. CARDIOVASCULAR: Regular rate and rhythm without murmurs, gallops, or rubs. RESPIRATORY: Breath sounds equal bilaterally with mild expiratory wheezes BLB/ RUL. No accessory muscle use. Pt denies SOB/CP Laboratory Tests Test 08/09/17 03:00 White Blood Count 12.1 TH/MM3 (4.0-11.0) Red Blood Count 4.15 MIL/MM3 (4.50-5.90) Hemoglobin 12.8 GM/DL (13.0-17.0) Hematocrit 38.2 % (39.0-51.0) Random Glucose 128 MG/DL (74-106) Calcium Level 8.2 MG/DL (8.5-10.1) Hospital Course: 67/M who presents w/ high grade LEFT carotid stenosis Asymptomatic w/o c/o neurological deficits Pt S/P L CEA POD 1 Pt w/o c/o Headache/CP/SOB Pt w/o neurological deficits CN2-12 intact Pt to be d/c today OP F/U arranged w/ a surveillance carotid duplex Allergies Coded Allergies Type Severity Reaction Last Updated Verified No Known Allergies Allergy Unknown 08/08/17 No 08/07/17 08/07/17 08/08/17 08/08/17 08/09/17 08/09/17 06:00 18:00 06:00 18:00 06:00 18:00 Intake Total 2644 ml 1040 ml Output Total 750 ml 1480 ml Balance 1894 ml -440 ml Intake Oral 640 ml 480 ml IV Total 204 ml 560 ml Other 1800 ml Output Urine Total 650 ml 1480 ml Estimated Blood Loss 100 ml # Voids 2 4 # Bowel Movements 0 0 Laboratory Tests Test 08/09/17 03:00 White Blood Count 12.1 TH/MM3 Red Blood Count 4.15 MIL/MM3 Hemoglobin 12.8 GM/DL Hematocrit 38.2 % Mean Corpuscular Volume 91.9 FL Mean Corpuscular Hemoglobin 30.7 PG Mean Corpuscular Hemoglobin Concent 33.4 % Red Cell Distribution Width 13.4 % Platelet Count 205 TH/MM3 Mean Platelet Volume 8.4 FL Blood Urea Nitrogen 11 MG/DL Creatinine 0.69 MG/DL Random Glucose 128 MG/DL Calcium Level 8.2 MG/DL Sodium Level 138 MEQ/L Potassium Level 4.3 MEQ/L Chloride Level 105 MEQ/L Carbon Dioxide Level 23.9 MEQ/L Anion Gap 9 MEQ/L Estimat Glomerular Filtration Rate 115 ML/MIN Orders Procedure Category Date Status Time Lactated Ringer's MED 08/08/17 In Process 1000 Ml Inj (Lr 1000 M 06:15 Sodium Chlorid 0.9% MED 08/08/17 In Process 500 Ml Inj (Ns 500 M 06:15 Povidone Iod 5% MED 08/08/17 In Process Antisepsis Kit 06:15 Chlorhexidine 2% MED 08/08/17 In Process Cloth (Chlorhexidine 06:15 Insulin Human Regular MED 08/08/17 In Process Inj (Novolin R Inj 06:15 Metoprolol Tartrate MED 08/08/17 In Process (Lopressor) 06:15 Type And Screen BBK 08/08/17 Complete 06:24 Protamine Sulfate Inj MED 08/08/17 Complete (Protamine Sulfate 07:22 Heparin Inj (Heparin MED 08/08/17 Complete Inj) 07:22 Bupivacaine Pf 0.5% MED 08/08/17 Complete Inj (Marcaine Pf 0.5 07:22 Thrombin Top [place] MED 08/08/17 Complete (Thrombin Top [place]) 07:22 Heparin-Ns/Pf Inj MED 08/08/17 Complete (Heparin-Ns/Pf Inj) 07:22 Cefazolin 2 Gm Premix MED 08/08/17 Complete (Ancef 2 Gm Premix 07:22 Sugammadex Inj MED 08/08/17 Complete ([place]rid[place] Inj) 07:49 Dexmedetomidine Inj MED 08/08/17 Complete (Precedex Inj) 07:49 Famotidine Inj MED 08/08/17 Complete (Pepcid Inj) 07:50 Admit To Inpatient ADMITTING 08/08/17 Transmitted Code Status CODE 08/08/17 Transmitted 07:47 Vital Signs (Adult) [facility] 08/08/17 In Process 07:47 Engine Repairer Production / [facility] 08/08/17 In Process Telemetry 07:47 Activity Oob Ad Christina [facility] 08/08/17 In Process 17:00 Activity Bed Rest [facility] 08/08/17 In Process 07:[address] Barnes [facility] 08/08/17 In Process 07:47 Diet Npo DIET 08/08/17 Complete Breakfast Diet Heart Healthy DIET 08/08/17 Transmitted Lunch Basic Metabolic Panel LAB 08/09/17 Complete (Bmp) 06:00 Cbc No Diff, Includes LAB 08/09/17 Complete Plts 06:00 Consult Quality Control CONS 08/08/17 Transmitted Lactated Ringer's MED 08/08/17 Complete 1000 Ml Inj (Lr 1000 M 09:00 Famotidine (Pepcid) MED 08/08/17 In Process 09:00 Oxycodone (Roxicodone) MED 08/08/17 In Process 08:00 Hydromorphone MED 08/08/17 In Process (Dilaudid) 08:00 Inpatient ADMITTING 08/08/17 Transmitted Certification Bumetanide MED 08/08/17 In Process (Bumetanide) 08:00 Cholecalciferol MED 08/08/17 In Process (Vitamin D3) 09:00 Clopidogrel (Plavix) MED 08/08/17 In Process 09:00 Lisinopril (Prinivil) MED 08/08/17 In Process 09:00 Temazepam (Restoril) MED 08/08/17 In Process 08:00 Patient Own Medication MED 08/08/17 In Process 09:15 Multivitamin MED 08/08/17 Logged (Theragran) 09:15 Atorvastatin (Lipitor) MED 08/08/17 In Process 09:00 (Hub Use Only)Inp Phy CONS 08/08/17 Transmitted Cons/Ref Nitroglycerin-D5w 50 MED 08/08/17 Complete Mg/250 Ml (Nitrogly 08:11 Morphine Inj MED 08/08/17 In Process (Morphine Inj) 09:00 ^ Other Nursing Orders [facility] 08/08/17 In Process 10:34 Am Admit Pre Op Care [facility] 08/08/17 Complete Enoxaparin Inj MED 08/09/17 In Process (Lovenox Inj) 09:00 ^ Other Nursing Orders [facility] 08/08/17 In Process 14:09 Resp Ezpap/Pep Therapy RSP 08/09/17 Logged 07:13 RESP RSP 08/09/17 Logged Acapella/Pep/Chest 07:13 Resp Incentive RSP 08/09/17 Logged Spirometry 07:13 Bumetanide Inj (Bumex MED 08/09/17 Complete Inj) 07:15 ^ Discontinue [facility] 08/09/17 In Process Arterial Line 07:16 Patient Transfer ADMITTING 08/09/17 Transmitted Attending Discharge DISCHARGE 08/09/17 Transmitted Order Vital Signs Date Time Temp Pulse Resp B/P (MAP) Pulse Ox O2 Delivery O2 Flow Rate FiO2 08/09/17 09:03 92 Nasal Cannula 2.00 08/09/17 07:00 74 08/09/17 07:00 90 Nasal Cannula 2.00 08/09/17 07:00 98.5 65 18 119/72 (88) 90 Arterial Line 08/09/17 03:00 98.3 61 18 114/65 (81) 93 142/67 (92) 08/09/17 03:00 62 08/09/17 03:00 95 Nasal Cannula 3.00 08/08/17 23:00 60 08/08/17 23:00 95 Nasal Cannula 3.00 08/08/17 23:00 98.1 60 18 108/63 (78) 95 115/57 (76) 08/08/17 20:00 95 Nasal Cannula 2.00 08/08/17 20:00 98.1 65 18 108/69 (82) 95 113/61 (78) 08/08/17 20:00 60 08/08/17 16:00 94 Nasal Cannula 2.00 08/08/17 15:00 59 08/08/17 15:00 98.6 59 18 101/62 (75) 95 113/52 (72) 08/08/17 15:00 95 Nasal Cannula 2.00 08/08/17 11:00 98.2 65 18 133/77 (95) 92 134/61 (85) 08/08/17 11:00 65 08/08/17 11:00 94 Nasal Cannula 4.00 08/08/17 06:53 97.0 60 20 139/81 (100) 96 Discharge Condition: Good Discharge Disposition: Discharge Home Discharge Instructions: May shower No tub baths or swimming until incision is fully healed Do not apply creams or ointments to incision site as it may loosen the surgical glue No driving for 1W No driving while taking narcotic pain medication F/U in 1M with a surveillance carotid duplex Any questions or concerns: Call [facility] at [facility] [phone] Thelma Sharma Aug 09, 2017 09:23
== END 2017-08-09 11:20 | disposition home or self-care (01) | DRG 38 ==
LOC: HSDI 05:42 → HCVI 10:50 → HCPC 08-09 09:15
PROVIDERS: ADMIT Surgery; ATTEND Surgery
PROC: 03CL0ZZ Extirpation of Matter from Left Internal Carotid Artery, Open Approach (ICD-10-PCS; 2017-08-08)
PROC: 03UL0KZ Supplement Left Internal Carotid Artery with Nonautologous Tissue Substitute, Open Approach (ICD-10-PCS; 2017-08-08)
PROC: 03CJ0Z6 (ICD-10-PCS; principal; 2017-08-08 08:00)
DX: I65.22 Occlusion and stenosis of left carotid artery (principal); I42.9 Cardiomyopathy, unspecified; I50.22 Chronic systolic (congestive) heart failure; I11.0 Hypertensive heart disease with heart failure; J44.9 Chronic obstructive pulmonary disease, unspecified; I73.9 Peripheral vascular disease, unspecified; K21.9 Gastro-esophageal reflux disease without esophagitis; N40.0 Benign prostatic hyperplasia without lower urinary tract symptoms; M19.90 Unspecified osteoarthritis, unspecified site; M54.5 Low back pain; H40.9 Unspecified glaucoma; E78.5 Hyperlipidemia, unspecified; R09.02 Hypoxemia; Z95.5 Presence of coronary angioplasty implant and graft; Z95.810 Presence of automatic (implantable) cardiac defibrillator; Z87.891 Personal history of nicotine dependence
CPT/HCPCS: 80048; 85027; 86850; 86900; 86901; 94150; 94640; 94667; J0690; J1644; J1650; J2720; J7120